=== PATIENT | female | born 1995 | race Caucasian/White ===

== ENCOUNTER 2022-02-05 09:09 | Day surgery (SDC) | payer OTHER, SELFPAY ==
[2022-02-05] VITALS (7 sets, daily range): BP systolic 138–164; BP diastolic 74–92; PULSE 67–80; RESP 16–18; TEMP 35.9–36.6; O2SAT 95–100; BMI 43.4
--- NOTE | 2022-02-05 | BON_PTH ---
PATIENT: MIKAELA AMBROSE LOC: [facility] [place] U#:[id number] AGE/SX: 26/F ROOM: RE02/05/[address]: Dr. Fernandez Schumacher MD : 1995 BED: DIS: 02/05/2022 SPEC #: [id number] RECD: 02/05/22 16:04 STATUS: MIKO HERIBERTO #: [id number] SARAH: 02/05/22 00:[address]: Fernandez Schumacher DEPT: SURGICAL PATHOLOGY RECD BY: Richard Joaquin ENTERED: 02/06/22 09:17 SP TYPE: Bone OTHR DR: No Primary Care Phys Tissues: A - Bone of hand, NOS B - Finger, NOS Procedures: Decalcification bone/plaque Surgery Specimen Level IV Surgery Specimen Level V HEADER OPERATION: Surgical preparation long fingertip traumatic amputation PRE-OP DIAGNOSIS: Partial traumatic transphalangeal amputation of left middle finger; open displaced fracture of distal phalanx f left middle finger; crush injury of left middle finger TISSUE SUBMITTED: A ? Bone, left long finger, B ? Soft tissue, left long finger MICROSCOPIC DIAGNOSIS A. Bone of long finger, bone biopsy: Focal reparative and reactive change. B. Soft tissue of left long finger, biopsy: Fibrous tissue with chronic inflammation and fibrinoid material with mild autolytic changes. Bone with no pathologic change. AM:anthony 02/09/2022 MICROSCOPIC DESCRIPTION Slides are reviewed. GROSS DESCRIPTION A - Received in fixative is one container labeled with the patient's name and designated bone left long finger. The specimen consists of a fragment of bone measuring 0.3 x 0.3 x 0.2 cm. The entire specimen is submitted in one cassette after decalcification. B - Received in fixative is one container labeled with the patient's name and designated soft tissue left long finger. The specimen consists of multiple pieces of reid, indurated tissue that in aggregate measure 2 x 0.4 x 0.2 cm. The specimen is totally submitted in one cassette. / SJ:anthony 02/06/2022 TC:3 CPT: 40069, 14938, 56612
--- NOTE | 2022-02-05 00:02 | PCM.HP.BLA ---
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 She was taken to the ED at [facility].? Patient is right hand dominant.? X-ray was done which showed mildly comminuted and displaced open fracture of the tuft of the distal phalanx left long finger.? There is skin loss present with the bony tip exposed.? There was no evidenced of a radiopaque foreign body.? There is no dislocation.? The wound was cleansed and bandaged.? The nail plate was avulsed.? The proximal portion of the nail bed was still intact.? At least 50% of the nail bed (distal portion) was removed with the amputation injury.? She was started on Keflex and was given [place] for pain.? She was referred to Orthopedics who saw her the next day on 01/31/22.? With the bone exposed, the patient was given two options.? One was to shorten the bone and revise the amputation in order to allow the soft tissue to close over the bone.? The other option is to provide soft tissue reconstruction to maintain as much length of the finger as possible.? The patient was interested in the latter choice and she did not want the finger shortened any further.? Revision amputation would necessitate shortening the finger at the level of the DIP joint or? into the middle phalanx.? She was then referred her to discuss her surgical options for treatment. 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-smoker Open displaced fracture of distal phalanx of left middle finger Partial traumatic transphalangeal amputation of left middle finger, initial encounter Shortness of breath on exertion PAST SURGICAL HISTORY No history of previous surgery ALLERGIES No Known Drug Allergies MEDICATIONS cephalexin hydrocodone-acetaminophen FAMILY HISTORY Mother - Anemia, Asthma, Arthritis, Cancer, Diabetes, Hypertension, Uterine cancer Grandmother - Cancer, Diabetes, Heart disease, Hypertension, Kidney disease, High cholesterol, Skin cancer Father - Diabetes, Hypertension, CVA (cerebral vascular accident) SOCIAL HISTORY Smoking Status:? Never smoker alcohol intake:? current substance use type:? does not use REVIEW OF SYSTEMS General - Denies fever, fatigue, and weight loss. Eyes - Denies cataracts and glaucoma. ENT - Denies nasal congestion and sore throat. Endocrine - Denies excessive thirst and urination. Skin - Denies suspicious lesions and skin cancer.? Has traumatic amputation left long finger tip with skin loss and exposed bone with a mildly comminuted and displaced open fracture of the tuft of the distal phalanx.? Has family history of skin cancer. Musculoskeletal - Denies joint pain, joint stiffness, weakness of muscles and joints, back pain, and arthritis. Neuro - Denies headaches. Cardiovascular - Denies chest pain, fatigue, and shortness of breath with exertion. Psych - Denies anxiety and depression. Respiratory - Denies chronic cough and shortness of breath. Gastrointestinal - Denies nausea, vomiting, diarrhea, and constipation. Hematologic - Denies abnormal bruising and bleeding. Genitourinary - Denies hematuria and urinary frequency. PHYSICAL EXAMINATION General - Alert and Oriented. HEENT - PERRL. EOMI.? Throat is clear. Neck - Supple and nontender.? No cervical adenopathy. Lungs - Clear to auscultation. Heart - Regular rate and rhythm. Abdomen - Soft and nondistended. Extremities - FROM lower extremities and right upper extremity. In the left upper extremity, there is a partial amputation left long finger tip through the nail bed with exposed bone and skin loss.? The surrounding skin and nail bed appear viable.? There is no evidence of vascular compromise.? Mild swelling noted.? Patient is able to flex and extend the left long finger at the DIP joint.? The injured finger is quite tender to palpation.? She is also able to flex and extend the left long finger at the PIP and MP joints.? No axillary adenopathy.? Radial pulses are palpable. Sensation of the finger is limited secondary to pain and swelling from the injury. Neuro - CN II-XII grossly intact. Psych - Normal mood and affect. ASSESSMENT 1.? Partial traumatic transphalangeal amputation left long finger through tuft of distal phalanx with exposed bone and skin loss including nail bed. 2.? Mildly comminuted and displaced open fracture left long finger tip. 3.? Crushing injury left long finger tip. 4.? 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 PLAN Medical records reviewed. X-rays reviewed.? There is exposed bone that will need to be covered with soft tissue.? One option that was discussed by her Orthopedic Surgeon was to revise the amputation which requires shortening the finger by removing some bone until the surrounding remaining soft tissue can be closed over the bone.? She did not like that option as she would prefer to not have to shorten the finger any further if possible.? The other option is to provide soft tissue coverage over the exposed bone and thus maintaining more length of the finger.? She wants to proceed with the second option to try and maintain length of the finger.? At the time of surgery, some of the loose fragments of bone may be debrided to minimize development of a painful bone cysts in the future.? There appears to be a piece of tuft that is displaced volarly.? I will try and reduce the bony fragment if possible.? The remaining bone may have some spicules that will need to be sanded down so they don't become a source of pain in the future.? The soft tissue flap that I recommend to the patient for wound closure and bony coverage is the thenar flap.? This is a two stage flap.? The second stage would take place in 3 weeks with a division and inset of the flap.? Usually one flap is adequate for soft tissue coverage.? However a second flap may sometimes be necessary depending on the final size of the wound after debridement has been done and any devitalized tissue removed. ? At the time of the second stage division and inset of the flap, the donor site wound sometimes cannot be closed easily.? In that situation, a local skin flap or a skin graft would be done for wound closure.? Due to the nature of the injury in a factory that is not always super clean, the exposed bone can increase the risk of osteomyelitis.? At the time of surgery, I would debride a small portion of the bone to evaluate for osteomyelitis.? If present, then termite renewal inspector antibiotics would be necessary, sometimes with the use of a PICC line. ? So during the interval between the surgeries, she will be off work since her left hand would be indisposed with the left long finger attached to her palm in the area of the thenar eminence. ? After the division and inset of the flap, I anticipate some stiffness developing in the finger and OT may be necessary for range of motion exercises, strengthening, and edema management.? The surgery will be done under general anesthesia on an outpatient basis.? Will schedule the surgery in a few days on 02/05/22.? If the remaining nail bed is in great shape, I may leave it and suture the flap to the distal edge of the nail bed.? Her nail would be shorter, and she would need to trim it often as the distal nail may have a tendency to curl over the tip of the stump.? If it appears that the nail bed is not in great shape, i.e, comminuted, swollen then I may remove the nail bed complex prior to closing the wound with the soft tissue thenar flap.? I don't want to the suture line between the skin flap and the distal nail bed to be suboptimal which would increase the risk of wound separation.? This would re-expose the bone and necessitate further surgical revision.? That decision would be made at the time of surgery.? It was discussed with the patient that the remaining nail bed may not? be preserved.? She voices understanding and wishes to proceed. Patient was informed of the risks and complications of the procedure including alternatives to surgery.? These were discussed with the patient personally.? Patient voices understanding and wishes to proceed. Some of the risks and complications were included in a form from the [employer]. Some of the risks and complications that were discussed included but were not inclusive of failure to diagnose including symptom relief, pain, infection, numbness, stiffness, loss of digit, RSD (CRPS), need for further surgery, contracture, and wound healing problems. The patient will be off work until the left long finger tip amputation wound has healed and the left hand is full functional.? There will be no lifting with her left hand until the wounds have healed to my satisfaction.? When she is not needing narcotics for pain relief, she may be eligible for light duty one handed work.? This usually means office work as she will not be allowed near any machines and will not be allowed to operate any machinery until the wounds have healed and her left hand shows no strength or residual pain or functional issues. With the crushing nature of the injury, she is at risk for termite renewal inspector problems with her finger such as pain, stiffness both involving the joints and tendons,?vascular issues, numbness, osteomyelitis, painful bone cysts, neuromas that may need surgical intervention at that time. If surgery is needed at that time, it would be related to the initial work injury. 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
[2022-02-05] MEDS: Lactated Ringers 1,000 ML 15 ML IV (09:55)
[2022-02-05 10:13] LABS: Internal QC Validated? YES +Cl - CLEAR BKGD; Pregnancy, Urine Negative Negative
[2022-02-05] MEDS: Clindamycin 900 MG/50 ML BAG 75 MG IV (12:05)
[2022-02-05] MEDS: Lidocaine 2% /Epi 1:100 (20ml) 20 ML VIAL (12:31)
[2022-02-05] MEDS: Mupirocin Ointment 22gm Tube 1 APPLIC (14:00)
--- NOTE | 2022-02-05 15:23 | PCM.OPRPT ---
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 Partial traumatic transphalangeal amputation left long finger through tuft of distal phalanx with exposed bone and skin loss including nail bed. 2. Mildly comminuted and displaced open fracture left long finger tip. 3. Crushing injury left long finger tip. 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 Post-Operative Diagnosis: 1. Partial traumatic transphalangeal amputation left long finger through tuft of distal phalanx with exposed bone and skin loss including nail bed. 2. Mildly comminuted and displaced open fracture left long finger tip. 3. Crushing injury left long finger tip. 4. Nail bed laceration wound left long finger. 5. 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 Surgery/Procedure Performed:: 1. Surgical preparation left long finger tip traumatic amputation wound through exposed distal phalanx with excisional debridement and partial ostectomy distal phalanx for osteomyelitis. 2. Repair nail bed laceration wound left long finger. 3. 1st stage complex left hand reconstruction left long finger tip traumatic amputation wound through exposed distal phalanx with thenar flap. 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 She was taken to the ED at [facility].? Patient is right hand dominant.? X-ray was done which showed mildly comminuted and displaced open fracture of the tuft of the distal phalanx left long finger.? There is skin loss present with the bony tip exposed.? There was no evidenced of a radiopaque foreign body.? There is no dislocation.? The wound was cleansed and bandaged.? The nail plate was avulsed.? The proximal portion of the nail bed was still intact.? At least 50% of the nail bed (distal portion) was removed with the amputation injury.? She was started on Keflex and was given [place] for pain.? She was referred to Orthopedics who saw her the next day on 01/31/22.? With the bone exposed, the patient was given two options.? One was to shorten the bone and revise the amputation in order to allow the soft tissue to close over the bone.? The other option is to provide soft tissue reconstruction to maintain as much length of the finger as possible.? The patient was interested in the latter choice and she did not want the finger shortened any further.? Revision amputation would necessitate shortening the finger at the level of the DIP joint or? into the middle phalanx.? She was then referred her to discuss her surgical options for treatment. Patient was informed of the risks and complications of the procedure including alternatives to surgery. These were discussed with the patient personally. Patient voices understanding and wishes to proceed. Some of the risks and complications were included in a form from the [employer]. Some of the risks and complications that were discussed included but were not inclusive of failure to diagnose including symptom relief, pain, infection, numbness, stiffness, loss of digit, RSD (CRPS), need for further surgery, contracture, and wound healing problems. Total tourniquet time - 63 minutes. Surgeon: Fernandez Schumacher industrial machine system technician: None Type of Anesthesia: General (with digital tourniquet.) Anesthesiologist: Ike Fang MD and Wayne Lizarraga CRNA. Specimen's removed: 1. Left long finger tip amputation soft tissue to Pathology and Microbiology. 2. Left long finger tip amputation distal phalanx bone to Pathology and Microbiology. Drains: None. Estimated Blood Loss (mL): 5. Description of Procedure: Patient was taken to OR in supine position and was placed under general anesthesia. The left hand was prepped and draped in the usual fashion. SCD's were placed for DVT prophylaxis. Perioperative antibiotics were given intravenously. AW digital tourniquet was applied to the left long finger. Under loupe magnification, surgical preparation was done with excisional debridement of the amputation site. There was visible bone in the amputation site. The nail bed complex that remained appeared viable and intact except for a small horizontal laceration involving the proximal nail bed that measured 6 mm. Using 6-0 Chromic simple sutures, I repaired the nail bed laceration.About 50% of the nail bed was preserved. The distal tip of the distal phalanx was sharp and spiculated. The spiculation was smoothed out with a rasp. There were several smaller pieces of bone from the comminuted fracture that was excised and debrided. The wound was irrigated with saline. I then designed a thenar flap in the thenar eminence part of the palm. The distal portion of the flap will approximate to the leading edge of the remaining nail bed. The flap measures 1 x 1 cm. Incision was made in the thenar eminence down into the subcutaneous tissue. The thenar flap was elevated on this subcutaneous pedicle at the level of the underlying thenar muscles. No median nerve branches such as recurrent branch were seen at the level of the thenar muscles in this area of the dissection. The thenar flap was easily attached to the amputation site left long finger with minimal tension and distortion. The flap was secured to the amputation site left long finger with 5-0 Monocryl simple interrupted sutures to the finger skin laterally and finger nail bed distally. No kinking was noted in the flap. No vascular compromise was noted in the flap at this time. Before completely closing the flap onto the amputation site, I released the digital tourniquet after 63 minutes. Bleeding was easily controlled with gentle compression. I placed antibiotic ointment on the suture lines and the nail bed and wound defect thenar eminence where the flap was elevate. I freed up the hyponychial area and placed a piece of Xeroform gauze in this area to allow the growth and advancement of a new nail. The Xeroform gauze also covered the nail bed and was placed into the wound defect thenar eminence where the flap was elevated. I placed gauze in this palm defect as well to help absorb any moisture or drainage during the healing process. I placed 2x2 gauze in the web spaces of the fingers to minimize ulceration in this area. I further wrapped the hand with a 2 inch Jack wrap followed by an zak wrap. Patient tolerated the procedure well and was sent to PACU in satisfactory condition. Patient will be sent home on antibiotics and pain medication. Patient will followup in the office tomorrow for a dressing change and a wound check. Will discuss the Pathology report and the Microbiology report when they become available. A positive culture will necessitate antibiotic therapy. In approximately 3 weeks, will return to the operating room for the second stage of this complex left hand reconstruction with division and inset of the thenar flap and possible skin flap or skin graft of the donor site thenar eminence. Grafts/Implants Used: None. Procedure Start Time: 12:31 Procedure Stop Time: 14:00 Complications None. Admit VTE Documentation VTE Present on Admission: No VTE Mechan Device Prophylaxis: SCD's VTE Pharm Prophylaxis ordered?: No Addendum Addendum: Surgery Charges CPT - 83102 ICD-10 - S68.623A, S62.633B, S67.193A, Y92.63 14733 S68.623A, S62.633B, S67.193A, Y92.63 23345 S68.623A, S62.633B, S67.193A, Y92.63 76375 S68.623A, S62.633B, S67.193A, Y92.63
--- NOTE | 2022-02-05 15:25 | DCINST_ITS ---
Discharge Instructions Diet Discharge Diet: No restrictions and - (encourage nutritional supplementation with protein to help the healing process) Activity Discharge Activity: May Not Drive, May Shower (wear plastic bag over left hand when showering.) and - (no lifting with left hand. 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 Keep extremity elevated above heart level: Left Arm Dressing / Incision Call your doctor if your incision/area has: Continuous Slow Oozing, Sudden Increased Bleeding, Increased Pain/ Swelling, Increased Redness, Foul Smelling Discharge and Swelling at the incision site Call your doctor if you observe: Fever of 101 or Higher, Coldness, Increased Pain, Shortness of breath, Chest pain, Calf discomfort and Uncontrolled pain Change Dressing in: 1 day (will change operative dressing in the office.) Cleanse incision/area with: Keep Dressing Clean & Dry (wear plastic bag over left hand when showering.) Follow Up Care Please Follow Up With: Fernandez Schumacher MD When: tomorrow 02/06/22. Call [phone] for appt. Test Results: Test results from this visit will be discussed in further detail at your follow- up appointment, if applicable. Discharge Plan Admission Primary Reason for Your Visit: complex hand reconstruction. Attending Provider: Fernandez Schumacher Primary Care Provider: Care Physician,No Primary Discharge Orders/Prescriptions Prescriptions: New doxycycline hyclate 100 mg tablet 100 mg PO BID Qty: 42 1RF L.acidoph,saliva-B.bif-S.therm [Acidophilus Probiotic Blend] 175 mg capsule 1 cap PO DAILY Qty: 30 1RF oxycodone-acetaminophen [Percocet] 5-325 mg tablet 1 tab PO Q6H PRN (Reason: severe pain (scale score 7-10)) 7 Days Qty: 28 0RF Rx Instructions: 28 tabs (twenty-eight) Continued cephalexin 500 mg capsule 500 mg PO Q6H hydrocodone-acetaminophen 5-325 mg tablet 1 tab PO Q4H PRN (Reason: Pain) Referrals / Follow Up: Fernandez Schumacher MD [Med Staff - Active Staff] - (followup tomorrow 02/06/22.) Care Physician,No Primary [Primary Care Provider] - Disposition Disposition (needs filled in before D/C Order can be placed): Home, Self Care
--- NOTE | 2022-02-05 15:47 | SUR.PHASEII ---
1530 Left hand pink in color, good sensation, elevated on pillow.
== END 2022-02-05 16:51 | disposition home or self-care (01) ==
LOC: SDC 09:12 → AC 09:25
PROVIDERS: Anesthesiology; Referring Provider Surgery; Visit Provider Surgery
PROC: (CPT 15574; principal; 2022-02-05 11:15)
DX: S68.623A Partial traumatic transphalangeal amputation of left middle finger, initial encounter (principal); Z86.16 Personal history of COVID-19; S67.193A Crushing injury of left middle finger, initial encounter; W31.89XA Contact with other specified machinery, initial encounter; Y99.0 Civilian activity done for income or pay; Y92.63 Factory as the place of occurrence of the external cause
CPT/HCPCS: 11760; 15574; 26236; 15004; 01830; 81025; 87015; 87070; 87075; 87077; 87102; 87116; 87186; 87205; 87206; 88304; 88305; 88307; 88311; J7120; J2405

== ENCOUNTER 2022-02-27 05:52 | Day surgery (SDC) | payer OTHER, SELFPAY ==
--- NOTE | 2022-02-26 12:55 | PCM.HP.BLA ---
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 She was taken to the ED at [facility].? Patient is right hand dominant.? X-ray was done which showed mildly comminuted and displaced open fracture of the tuft of the distal phalanx left long finger.? There is skin loss present with the bony tip exposed.? There was no evidenced of a radiopaque foreign body.? There is no dislocation.? The wound was cleansed and bandaged.? The nail plate was avulsed.? The proximal portion of the nail bed was still intact.? At least 50% of the nail bed (distal portion) was removed with the amputation injury.? She was started on Keflex and was given [place] for pain.? She was referred to Orthopedics who saw her the next day on 01/31/22.? With the bone exposed, the patient was given two options.? One was to shorten the bone and revise the amputation in order to allow the soft tissue to close over the bone.? The other option is to provide soft tissue reconstruction to maintain as much length of the finger as possible.? The patient was interested in the latter choice and she did not want the finger shortened any further.? Revision amputation would necessitate shortening the finger at the level of the DIP joint or? into the middle phalanx.? She was then referred her to discuss her surgical options for treatment. 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-smoker Open displaced fracture of distal phalanx of left middle finger Partial traumatic transphalangeal amputation of left middle finger, initial encounter Shortness of breath on exertion PAST SURGICAL HISTORY No history of previous surgery ALLERGIES No Known Drug Allergies MEDICATIONS cephalexin hydrocodone-acetaminophen FAMILY HISTORY Mother -?Anemia, Asthma, Arthritis, Cancer, Diabetes, Hypertension, Uterine cancer Grandmother -?Cancer, Diabetes, Heart disease, Hypertension, Kidney disease, High cholesterol, Skin cancer Father -?Diabetes, Hypertension, CVA (cerebral vascular accident) SOCIAL HISTORY Smoking Status:? Never smoker alcohol intake:? current substance use type:? does not use REVIEW OF SYSTEMS General - Denies fever, fatigue, and weight loss. Eyes - Denies cataracts and glaucoma. ENT - Denies nasal congestion and sore throat. Endocrine - Denies excessive thirst and urination. Skin - Denies suspicious lesions and skin cancer.? Has traumatic amputation left long finger tip with skin loss and exposed bone with a mildly comminuted and displaced open fracture of the tuft of the distal phalanx.? Has family history of skin cancer. Musculoskeletal - Denies joint pain, joint stiffness, weakness of muscles and joints, back pain, and arthritis. Neuro - Denies headaches. Cardiovascular - Denies chest pain, fatigue, and shortness of breath with exertion. Psych - Denies anxiety and depression. Respiratory - Denies chronic cough and shortness of breath. Gastrointestinal - Denies nausea, vomiting, diarrhea, and constipation. Hematologic - Denies abnormal bruising and bleeding. Genitourinary - Denies hematuria and urinary frequency. PHYSICAL EXAMINATION General - Alert and Oriented. HEENT - PERRL. EOMI.? Throat is clear. Neck - Supple and nontender.? No cervical adenopathy. Lungs - Clear to auscultation. Heart - Regular rate and rhythm. Abdomen - Soft and nondistended. Extremities - FROM lower extremities and right upper extremity. In the left upper extremity, there is a partial amputation left long finger tip through the nail bed with exposed bone and skin loss.? The surrounding skin and nail bed appear viable.? There is no evidence of vascular compromise.? Mild swelling noted.? Patient is able to flex and extend the left long finger at the DIP joint.? The injured finger is quite tender to palpation.? She is also able to flex and extend the left long finger at the PIP and MP joints.? No axillary adenopathy.? Radial pulses are palpable. Sensation of the finger is limited secondary to pain and swelling from the injury. Neuro - CN II-XII grossly intact. Psych - Normal mood and affect. ASSESSMENT 1.? Partial traumatic transphalangeal amputation left long finger through tuft of distal phalanx with exposed bone and skin loss including nail bed. 2.? Mildly comminuted and displaced open fracture left long finger tip. 3.? Crushing injury left long finger tip. 4.? 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 PLAN Medical records reviewed. X-rays reviewed.? There is exposed bone that will need to be covered with soft tissue.? One option that was discussed by her Orthopedic Surgeon was to revise the amputation which requires shortening the finger by removing some bone until the surrounding remaining soft tissue can be closed over the bone.? She did not like that option as she would prefer to not have to shorten the finger any further if possible.? The other option is to provide soft tissue coverage over the exposed bone and thus maintaining more length of the finger.? She wants to proceed with the second option to try and maintain length of the finger.? At the time of surgery, some of the loose fragments of bone may be debrided to minimize development of a painful bone cysts in the future.? There appears to be a piece of tuft that is displaced volarly.? I will try and reduce the bony fragment if possible.? The remaining bone may have some spicules that will need to be sanded down so they don't become a source of pain in the future.? The soft tissue flap that I recommend to the patient for wound closure and bony coverage is the thenar flap.? This is a two stage flap.? The second stage would take place in 3 weeks with a division and inset of the flap.? Usually one flap is adequate for soft tissue coverage.? However a second flap may sometimes be necessary depending on the final size of the wound after debridement has been done and any devitalized tissue removed. ? At the time of the second stage division and inset of the flap, the donor site wound sometimes cannot be closed easily.? In that situation, a local skin flap or a skin graft would be done for wound closure.? Due to the nature of the injury in a factory that is not always super clean, the exposed bone can increase the risk of osteomyelitis.? At the time of surgery, I would debride a small portion of the bone to evaluate for osteomyelitis.? 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 ? So during the interval between the surgeries, she will be off work since her left hand would be indisposed with the left long finger attached to her palm in the area of the thenar eminence. ? After the division and inset of the flap, I anticipate some stiffness developing in the finger and OT may be necessary for range of motion exercises, strengthening, and edema management.? The surgery will be done under general anesthesia on an outpatient basis.? Will schedule the surgery in a few days on 02/05/22.? If the remaining nail bed is in great shape, I may leave it and suture the flap to the distal edge of the nail bed.? Her nail would be shorter, and she would need to trim it often as the distal nail may have a tendency to curl over the tip of the stump.? If it appears that the nail bed is not in great shape, i.e, comminuted, swollen then I may remove the nail bed complex prior to closing the wound with the soft tissue thenar flap.? I don't want to the suture line between the skin flap and the distal nail bed to be suboptimal which would increase the risk of wound separation.? This would re-expose the bone and necessitate further surgical revision.? That decision would be made at the time of surgery.? It was discussed with the patient that the remaining nail bed may not? be preserved.? She voices understanding and wishes to proceed. Patient was informed of the risks and complications of the procedure including alternatives to surgery.? These were discussed with the patient personally.? Patient voices understanding and wishes to proceed. Some of the risks and complications were included in a form from the [employer]. Some of the risks and complications that were discussed included but were not inclusive of failure to diagnose including symptom relief, pain, infection, numbness, stiffness, loss of digit, RSD (CRPS), need for further surgery, contracture, and wound healing problems. The patient will be off work until the left long finger tip amputation wound has healed and the left hand is full functional.? There will be no lifting with her left hand until the wounds have healed to my satisfaction.? When she is not needing narcotics for pain relief, she may be eligible for light duty one handed work.? This usually means office work as she will not be allowed near any machines and will not be allowed to operate any machinery until the wounds have healed and her left hand shows no strength or residual pain or functional issues. With the crushing nature of the injury, she is at risk for prison problems with her finger such as pain, stiffness both involving the joints and tendons,?vascular issues, numbness, osteomyelitis, painful bone cysts, neuromas that may need surgical intervention at that time.? If surgery is needed at that time, it would be related to the initial work injury. 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
[2022-02-27] VITALS (12 sets, daily range): BP systolic 117–154; BP diastolic 53–96; PULSE 78–92; RESP 16–18; TEMP 36.2–36.8; O2SAT 98–100; BMI 43.6
[2022-02-27 06:41] LABS: Internal QC Validated? YES +Cl - CLEAR BKGD; Pregnancy, Urine Negative Negative
[2022-02-27] MEDS: Lactated Ringers 1,000 ML 15 ML IV (06:43)
[2022-02-27] MEDS: Lidocaine 2% /Epi 1:100 (20ml) 20 ML VIAL (07:20)
[2022-02-27] MEDS: Clindamycin 900 MG/50 ML BAG 75 MG IV (07:26)
[2022-02-27] MEDS: Bacitracin 500 UNITS/GM PACKET (08:11)
[2022-02-27] MEDS: Sugammadex Sodium 200 MG/2 ML VIAL IV (08:30)
--- NOTE | 2022-02-27 10:16 | OP.PCM_ITS ---
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 Partial traumatic transphalangeal amputation left long finger through tuft of distal phalanx with exposed bone and skin loss including nail bed. 2. Mildly comminuted and displaced open fracture left long finger tip. 3. Crushing injury left long finger tip. 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 5. Status post surgical preparation left long finger tip traumatic amputation wound through exposed distal phalanx with excisional debridement and partial ostectomy distal phalanx for osteomyelitis and repair nail bed laceration wound left long finger and 1st stage complex left hand reconstruction left long finger tip traumatic amputation wound through exposed distal phalanx with thenar flap. Post-Operative Diagnosis: Same. Surgery/Procedure Performed:: 1. 2nd stage complex left hand reconstruction with division and inset thenar flap left long finger tip. 2. Closure donor wound left palm with rhomboid transposition skin flap reconstruction (2 cm2). 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 She was taken to the ED at [facility].? Patient is right hand dominant.? X-ray was done which showed mildly comminuted and displaced open fracture of the tuft of the distal phalanx left long finger.? There is skin loss present with the bony tip exposed.? There was no evidenced of a radiopaque foreign body.? There is no dislocation.? The wound was cleansed and bandaged.? The nail plate was avulsed.? The proximal portion of the nail bed was still intact.? At least 50% of the nail bed (distal portion) was removed with the amputation injury.? She was started on Keflex and was given [place] for pain.? She was referred to Orthopedics who saw her the next day on 01/31/22.? With the bone exposed, the patient was given two options.? One was to shorten the bone and revise the amputation in order to allow the soft tissue to close over the bone.? The other option is to provide soft tissue reconstruction to maintain as much length of the finger as possible.? The patient was interested in the latter choice and she did not want the finger shortened any further.? Revision amputation would necessitate shortening the finger at the level of the DIP joint or? into the middle phalanx.?? The patient went to surgery on 02/05/22 where she underwent surgical preparation left long finger tip traumatic amputation wound through exposed distal phalanx with excisional debridement and partial ostectomy distal phalanx for osteomyelitis and repair nail bed laceration wound left long finger and 1st stage complex left hand reconstruction left long finger tip traumatic amputation wound through exposed distal phalanx with thenar flap.? Postoperatively, her thenar flap healed satisfactory.? Operative cultures showed Staphylococcus aureus and Staphylococcus capitis in the soft tissue and Staphylococcus aureus in the bone.? She was started on Doxycycline and will continue them for 6 weeks. Today she will proceed with 2nd stage complex left hand reconstruction with division and inset thenar flap left long finger tip with possible closure of donor wound left palm with a skin flap or a skin graft. Patient was informed of the risks and complications of the procedure including alternatives to surgery. These were discussed with the patient personally. Patient voices understanding and wishes to proceed. Some of the risks and complications were included in a form from the [employer]. Some of the risks and complications that were discussed included but were not inclusive of failure to diagnose including symptom relief, pain, infection, numbness, stiffness, loss of digit, RSD (CRPS), need for further surgery, contracture, and wound healing problems. Total tourniquet time - 69 minutes. Surgeon: Fernandez Schumacher MD curatorial specialist: Cami Tracey RNFA Type of Anesthesia: General Anesthesiologist: Sabas Mckeon MD and Sarah Vines CRNA Specimen's removed: None. Drains: None. Estimated Blood Loss (mL): 5. Description of Procedure: Patient was taken to OR in supine position and was placed under general anesthesia. The left hand was prepped and draped in the usual fashion. SCD's were placed for DVT prophylaxis. Perioperative antibiotics were given intra venously. I wrapped the left hand using an Esmarch bandage as the tourniquet was elevated to 250 mmHg. Using xylocaine with epinephrine, the thenar flap was infiltrated at its base in preparation for division of the flap. After waiting 5 minutes for the anesthetic to take effect, incision was made at the base of the thenar flap down into the subcutaneous tissue. After division of the thenar flap, I was able to extend the long finger with some resistance from residual stiffness from the finger. Using a [place] elevator, I was able to open up the space underneath the eponychial fold to allow growth of the nail complex. Xeroform gauze was placed underneath the eponychial fold to keep the space open to allow growth of the nail complex distally past the eponychial fold. The nail bed looks healthy and intact. I then inset the thenar flap into the tip of the finger after excising excess flap and using 5-0 Monocryl interrupted sutures to approximate the thenar flap to the wound edge of the left long finger tip. Good contour was noted in the tip of the left long finger. I was able to feel the distal edge of the distal phalanx bone through the skin flap without the tip being too floppy. No vascular compromise was noted on the thenar flap. The residual defect wound on the left palm in the thenar eminence area measured 1 x 1 cm or 1 cm2. I used a curette to debride the wound of granulation tissue. I designed a rhomboid flap adjacent to the wound and dissected the flap at the level of the thenar muscles. The recurrent motor branch of the median nerve was seen and preserved. The flap was easily transposed into the wound defect with minimal tension and minimal distortion. The tourniquet was released after 69 minutes. Hemostasis obtained with gauze compression. After transposing the flap into the wound defect, I closed the wound in a layered fashion with 5-0 Monocryl interrupted sutures for the deep dermis and subcutaneous tissue. The skin was approximated with 5-0 Prolene simple interrupted sutures. Good passive range of motion of the thumb was noted without evidence of skin tethering from the incision line (flexion and extension and abduction and adduction and opposition). The size of the wound and the size of the flap needed to close the wound was 2 cm2. Antibiotic ointment was applied to the suture lines. I placed Xeroform gauze on both suture lines (left long finger tip and thenar eminence left palm) followed by 2x2 gauze and 2 inch Jack wrap and a compression zak wrap. Patient tolerated the procedure well and was sent to PACU in satisfactory condition. Patient will be sent home on antibiotics and pain medication. Patient will followup in the office later this week for a wound check. She has been approved for OT after her surgery for range of motion exercises, strengthening, and edema management. I will remove the sutures in 2 weeks. 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 Grafts/Implants Used: None. Procedure Start Time: 07:57 Procedure Stop Time: 09:35 Complications None. Admit VTE Documentation VTE Present on Admission: No VTE Mechan Device Prophylaxis: SCD's VTE Pharm Prophylaxis ordered?: No Addendum Addendum: Surgery Charges CPT - 92171-03 ICD-10 - S68.623A, S62.633B, S67.193A, Y92.63 [id number] S68.623A, S62.633B, S67.193A, Y92.63
--- NOTE | 2022-02-27 10:17 | DCINST_ITS ---
Discharge Instructions Diet Discharge Diet: No restrictions Activity Discharge Activity: May Not Drive (until seen in the office and if taking pain medication.), May Shower (wear plastic bag over left hand when showering.) and - (elevate left hand. 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 Keep extremity elevated above heart level: Left Arm Dressing / Incision Call your doctor if your incision/area has: Continuous Slow Oozing, Sudden Incre ased Bleeding, Increased Pain/ Swelling, Increased Redness, Foul Smelling Discharge and Swelling at the incision site Call your doctor if you observe: Fever of 101 or Higher, Coldness, Increased Pain, Shortness of breath, Chest pain, Calf discomfort and Uncontrolled pain Suture Line Care: - (after operative dressing removed in the office, will apply antibiotic ointment to suture line daily.) Change Dressing in: leave in place till F/U (will remove the operative dressing on Saturday03/02/22.) Cleanse incision/area with: Soap & Water (after the operative dressing removed in the office, may get incisions wet with soap and water in the shower.) Follow Up Care Please Follow Up With: Fernandez Schumacher MD When: Saturday03/02/22. Call [phone] for appt. Test Results: Test results from this visit will be discussed in further detail at your follow- up appointment, if applicable. Discharge Plan Admission Primary Reason for Your Visit: division and inset thenar flap left long finger tip Attending Provider: Fernandez Schumacher Primary Care Provider: Care Physician,No Primary Discharge Orders/Prescriptions Prescriptions: Continued oxycodone-acetaminophen [Percocet] 5-325 mg tablet 1 tab PO Q6H PRN (Reason: severe pain (scale score 7-10)) 7 Days Qty: 28 0RF Rx Instructions: 28 tabs (twenty-eight) doxycycline hyclate 100 mg tablet 100 mg PO BID Qty: 42 0RF L.acidoph,saliva-B.bif-S.therm [Acidophilus Probiotic Blend] 175 mg capsule 1 cap PO DAILY Qty: 30 1RF Referrals / Follow Up: Fernandez Schumacher MD [Med Staff - Active Staff] - (followup saturday03/02/22.) Care Physician,No Primary [Primary Care Provider] - Disposition Disposition (needs filled in before D/C Order can be placed): Home, Self Care
[2022-02-27] MEDS: oxyCODONE 5 MG Tablet 10 MG PO (13:04)
== END 2022-02-27 13:37 | disposition home or self-care (01) ==
LOC: SDC 05:53 → AC 05:54
PROVIDERS: Anesthesiology; Referring Provider Surgery; Visit Provider Surgery
PROC: (CPT 15574; principal; 2022-02-27 07:15)
DX: S67.193A Crushing injury of left middle finger, initial encounter (principal); M86.9 Osteomyelitis, unspecified; S62.633B Displaced fracture of distal phalanx of left middle finger, initial encounter for open fracture; Z86.16 Personal history of COVID-19; Y92.63 Factory as the place of occurrence of the external cause
CPT/HCPCS: 11760; 15620; 14040; 00400; 81025; J7120; J2405

== ENCOUNTER 2024-04-07 11:03 | Emergency (ER) | payer OTHER, SELFPAY ==
[2024-04-07 11:04] VITALS: BP 153/100; PULSE 77; RESP 16; TEMP 36.8; O2SAT 100; BMI 43.7
--- NOTE | 2024-04-07 11:45 | EDS_ITS ---
HPI History of Present Illness Chief Complaint: Laceration Narrative Narrative: 29-year-old female who denies significant past medical history presents with injury to her right hand that she sustained at work just prior to arrival. She states she works at [employer] and was picking a large order. There is a metal stick that they use for getting in obtaining objects up high. When she went to put an object in the cart, the dorsum of her hand scraped against a metal piece on the stick. She sustained a laceration to the dorsum of her right hand. She is right-hand dominant. Her tetanus immunization is current within the last 3 years. She denies other injuries. Tetanus Immunization: <[address] 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, initial encounter COVID-19 Acid reflux Home Medications ?Medication ?Instructions ?Recorded ?Last Taken ?Type NK 04/20/22 Unknown History Allergy/AdvReac Type Severity Reaction Status Date / Time No Known Drug Allergies Allergy Other Verified 04/07/24 11:04 Family History Mother Anemia Asthma Arthritis Cancer Diabetes Hypertension Uterine cancer Grandmother Cancer Diabetes Heart disease Hypertension Kidney disease High cholesterol Skin cancer Father Diabetes Hypertension CVA (cerebral vascular accident) Surgical History History of hand surgery Social History number of children: 0 Smoking Status: Never smoker alcohol intake: current details: Occasionally substance use type: does not use additional social history: Does Take Ibuprofen As Needed Does Not Take Aspirin ROS ROS ED ROS Narrative Review of systems positive for laceration on dorsum of right hand. No other injuries. No active bleeding. EXAM Physical Exam Narrative Exam Narrative: GCS 15. ABCs are intact. Inspection of the right hand does reveal a 2.5 cm laceration running horizontally across the dorsum of the right hand mainly proximal to the third and fourth digits. No active bleeding. No apparent tendon involvement. This is through full range of motion of her digits. She is able to make a fist, and flex and extend the fingers on her right hand. Palpable radial pulse. Const Vital Signs: 04/07/24 11:04 Temperature 98.2 F Temperature Source Oral Pulse Rate 77 Respiratory Rate 16 Blood Pressure 153/100 H Blood Pressure Mean 117 Pulse Ox 100 Oxygen Delivery Method Room Air MDM MDM MDM Narrative Medical decision making narrative: I do not feel differential diagnosis is applicable in this situation. I do not feel she needs an x-ray of her right hand as there is no bony tenderness and I have very low suspicion for fracture. Her tetanus immunization is current within the last 5 years. She was told of the risk of infection and scarring and acknowledges an understanding. Her wound will be cleansed. Sutures will be pl aced for good wound edge approximation. See procedure note for details. She was administered Tylenol for analgesia here initially. As this is a Worker's Comp. related injury she was given today off, the remainder of her shift, and can return to work tomorrow keeping the area clean, dry, and covered. Return instructions to the emergency department were reviewed. Follow-up with the now clinic or Workmen's Compensation provider of choice in 7 to 10 days for suture removal. Disposition is discharged home in improved and stable condition. History & Record Review Discussion w/independent historian: Patient and Significant other Procedures Lacerations Right hand laceration: Length: 1 in Depth: Skin Shape: Linear Prep: Sterile Conditions Laceration repair: Irrigated, Lidocaine, Local and Wound explored (No tendon involvement through full range of motion of fingers.) Number of Sutures/Citlalli: 5 Suture Information: Ethilon, Simple and 4-0 Comment: Patient tolerated procedure well Discharge Plan Triage Chief Complaint: Laceration ED Provider: Jeremy Sotomayor Dx/Rx/DC Orders Clinical Impression: Hand laceration, Work related injury Instructions: ED Laceration, Hand: All Closures Prescriptions: No Action NK Primary Care Provider: Care Physician,No Primary Referrals: Care Physician,No Primary [Primary Care Provider] - Leo Michaud PA [Non-Staff -Ordering Privileges] - 10 Day for suture removal Activity Restrictions/Additional Instructions: Return with fever, drainage of pus from wound, increased redness, new or worsening symptoms. Have sutures removed in 7 to 10 days by now clinic. [id number] medications such as Tylenol or ibuprofen for pain. Print Language: Kenyan Disposition Disposition: Home, Self Care Discharge Date/Time: 04/07/24 13:11
[2024-04-07] MEDS: Acetaminophen 325 MG Tablet 650 MG PO (11:53)
[2024-04-07] MEDS: Lidocaine 1% (20 ml mdv) 20 ML Vial INFILT (11:53)
== END 2024-04-07 13:11 | disposition home or self-care (01) ==
PROVIDERS: Emergency Provider Emergency Medicine; Visit Provider Emergency Medicine
DX: S61.411A Laceration without foreign body of right hand, initial encounter (principal); K21.9 Gastro-esophageal reflux disease without esophagitis; Y99.0 Civilian activity done for income or pay; W26.8XXA Contact with other sharp object(s), not elsewhere classified, initial encounter
CPT/HCPCS: 12001; 99283